=== PATIENT | female | born 1965 | race African-American/Black ===

== ENCOUNTER 2016-11-03 22:26 | Emergency (ER) | payer SELFPAY ==
[~2016-11-03] VITALS: Ht 165.1 cm; Wt 93.0 kg
[~2016-11-03 22:26] MED LIST: AMLODIPINE BESY10 MG PO; ASPIRIN EC81 MG ORAL; AUGMENTIN 875-1 EAC1 ORAL; AZITHROMYCIN250 MG ORAL; DIFLUCAN100 MG PO; OMEPRAZOLE20 M2 ORAL; SPIRONOLACTONE1 EACH ORAL; TAMIFLU75 MG ORAL; TAMIFLU75 MG PO; ZANTAC150 MG ORAL
[2016-11-03 22:45] VITALS: BP 121/71
[2016-11-03] MEDS ORDERED: GENTAMICIN SUL3.5 GM OP (23:10)
[2016-11-03] MEDS ORDERED: NORVASC10 MG ORAL (23:10)
--- NOTE | 2016-11-03 23:15 | Emergency Room Report ---
History of Present Illness General Chief Complaint: Eye Problems Source: Patient Present Illness HPI Patient present with complaints of irritation to the right upper eyelid She feels that there was a small swelling Also complains of some mild discharge my site Denies any headache or visual changes denies any chest pain or shortness of breath Patient does put eyelashes in the upper eyelid Denies any neck pain or photophobia Allergies: Coded Allergies: No Known Allergies (Unverified , 08/08/12) Patient History Past Medical History: see triage record Pertinent Family History: none Last Menstrual Period: 11/01/16 Now: No Reviewed Nursing Documentation: PMH: Agreed, PSxH: Agreed Nursing Documentation-PMH Past Medical History: No History, Except For Hx Hypertension: Yes Review of Systems All Other Systems: negative except mentioned in HPI Physical Exam Vital Signs Date Time Temp Pulse Resp B/P Pulse Ox O2 Delivery O2 Flow Rate FiO2 11/03/16 22:38 97.7 80 16 121/71 100 Room Air Sp02 EP Interpretation: reviewed, normal General Appearance: well appearing, no apparent distress Head: normocephalic, atraumatic Eyes: right eye other - Small stye appearance in the medial aspect of the right upper eye, bilateral eye EOMI, bilateral eye PERRL ENT: normal pharynx, no angioedema Neck: supple, thyroid normal Respiratory: lungs clear Cardiovascular #1: regular rate, rhythm Gastrointestinal: soft, no mass Musculoskeletal: normal inspection, back normal Neurologic: normal inspection, alert, oriented x3, responsive Skin: other - as above Lymphatic: no adenopathy Medical Decision Making Diagnostic Impression: Primary Impression: sty ER Course Patient's clinical findings in line with a sty Also there is concern with the mascara appliance and also the fake eyelashes Patient was placed on antibiotic ointment Close outpatient follow Last Vital Signs Date Time Temp Pulse Resp B/P Pulse Ox O2 Delivery O2 Flow Rate FiO2 11/03/16 22:38 97.7 80 16 121/71 100 Room Air Status: unchanged Disposition: HOME, SELF-CARE Condition: Stable Scripts Amlodipine Besylate (Norvasc) 10 Mg Tablet 10 MG ORAL DAILY, #30 TAB Prov: HI WEIR D.O. 11/03/16 Gentamicin Sulfate* (GENTAMICIN SULFATE*) 3.5 Gm Oint...g. 3.5 GM OP TID for 7 Days, GM Prov: HI WEIR D.O. 11/03/16 Patient Instructions: Frederick Additional Instructions: Patient is provided with the discharge instructions notified to follow up with primary doctor in the next 2-3 days otherwise return to the er with any worsening symptoms. Please note that this report is being documented using DRAGON technology. This can lead to erroneous entry secondary to incorrect interpretation by the dictating instrument. HI WEIR D.O. Nov 03, 2016 23:15
[2016-11-03 23:28] VITALS: BP 129/73
== END 2016-11-03 23:28 | disposition home or self-care (01) ==
LOC: EMR 23:00
DX: H00.011 Hordeolum externum right upper eyelid (principal); I10 Essential (primary) hypertension
CPT/HCPCS: 99284